=== PATIENT | female | born 1975 | race Caucasian/White ===

== ENCOUNTER 2021-08-24 07:41 | Emergency (ER) | payer MEDICAID, SELFPAY ==
[2021-08-24 07:42] VITALS: BP 147/77; PULSE 104; RESP 16; TEMP 37.1; O2SAT 100; BMI 36.6
--- NOTE | 2021-08-24 07:54 | EKG12_ITS ---
Test Reason : CP Blood Pressure : / mmHG Vent. Rate : 093 BPM Atrial Rate : 093 BPM P-R Int : 118 ms QRS Dur : 074 ms QT Int : 330 ms P-R-T Axes : 054 064 064 degrees QTc Int : 410 ms Normal sinus rhythm Normal ECG Confirmed by MISTY MAS, MARTI ([id number]), industrial editor ELIAZAR DIAZ ([id number]) on 08/27/2021 9:25:39 AM Referred By: Confirmed By:MARTI JAY MD
--- NOTE | 2021-08-24 08:03 | EX.ED.DYSGE1 ---
HPI History of Present Illness Chief Complaint: Chest Pain Detail of Chief Complaint: Patient initially reported chest pain. See HPI Informant: patient Onset/Context/Timing Onset: Hours (0400) Context: Sudden Onset Timing: Continuous Quality: Achy pain Location: Initially chest then upper abdomen radiating to back bilaterally then gener Current Severity: Mild Maximum Severity: Severe Worsened by: Bending over Relieved by: Nothing Associated Symptoms Associated Symptoms: Nausea loose stool Narrative Narrative: Patient is a middle-aged woman with history of type 2 diabetes with neuropathy, hypertension and hyperlipidemia who presents with chest discomfort that started at 0400 that radiates to the right and left upper quadrant and then to the back and then became generalized abdominal pain. She states when she bent over to use the restroom or pick and shovel man something the pain was worse. She had a loose stool. There was no blood or mucus. She has known cholelithiasis. She denies intolerance to greasy or fried foods. She had a bagel with cream cheese at 04 100, which she states she has every morning. She also reports abnormal vaginal bleeding. She states she is not sexually active. She is on no hormonal therapy. She has no symptoms of . She denies dysuria, frequency, urgency or hematuria. Presently she has no chest pain. She states the pain was worse when she bent over to use the restroom and when she went to fold close she had to pick and shovel man the been and put it at waist level because it hurts to bend over. She denies history of VTE. She denies leg pain, swelling discoloration. She has no risk factors for VTE. Prior similar symptoms: No Recent Illness/Hospitalization: No PFSH PFSH Medical History (Updated 08/24/21 @ 10:[address] Gregory Field MD) CPAP (continuous positive airway pressure) dependence Diabetes Diabetic neuropathy Gall stones Hyperlipidemia Hypertension Sleep apnea Smoker Varicose veins of both lower extremities Allergy/AdvReac Type Severity Reaction Status Date / Time No Known Allergies Allergy Verified 08/24/21 07:44 Surgical History (Updated 08/24/21 @ 08:16 by Delaney Ng) History of appendectomy Social History (Updated 08/24/21 @ 08:[address] Gregory Field MD) household members: children Smoking Status: Current every day smoker tobacco type: cigarettes and e-cigarettes substance use type: does not use ROS ROS ED Constitutional Constitutional ED: Denies chills, fever(s), subjective, sweats or weight loss Eyes Eyes: Denies blurry vision, change in vision or diplopia ENT ENT ED: Denies ear pain, rhinorrhea or sore throat Cardiovascular Cardiovascular: Reports chest pain; Denies orthopnea, palpitations, paroxysmal nocturnal dyspnea or racing heartbeat Respiratory/Chest Respiratory/Chest: Denies cough, dyspnea, dyspnea on exertion, orthopnea, paroxysmal nocturnal dyspnea or sputum Gastrointestinal Gastrointestinal: Reports abdominal pain and nausea; Denies constipation, diarrhea, melena or vomiting Genitourinary Genitourinary ED: Reports LMP (females 10-50) Details: Comment: (Bleeding for the past week, which is abnormal); Denies dysuria, hematuria or urinary frequency Musculoskeletal Musculoskeletal: Reports back pain; Denies arthralgias, myalgias or neck pain Integumentary Denies rash Neurologic Neurologic: Denies headache(s) or weakness Psychiatric Psychiatric: Denies anxiety or depression Endocrine Endocrinology: Denies polydipsia, polyphagia or polyuria Hematologic/Lymphatic Hematologic/Lymphatic: Denies anemia, easy bleeding or easy bruising EXAM Physical Exam Const Vital Signs: 08/24/21 07:42 08/24/21 08:16 08/24/21 08:17 Temperature 98.7 F Temperature Source Temporal Pulse Rate 104 H 94 Respiratory Rate 16 19 H Respiratory Effort Normal Non-Labored Blood Pressure 147/77 H 138/75 H Blood Pressure Mean 100 96 Pulse Ox 100 97 Oxygen Delivery Method Room Air Room Air Positive well nourished, well developed and obese General Appearance ED: well developed and NAD; Negative for cyanotic, diaphoretic or pallor Nutritional Appearance: obese HEENT Reports TM's clear and moist mucous membranes Negative for trauma or tenderness Tympanic Membrane ED: Yes TM's clear Eyes PERRL and EOMs intact bilaterally General Eye ED: Negative for pale conjunctiva or scleral icterus Neck no lymphadenopathy, supple and no JVD Resp normal respiratory effort and clear to auscultation bilaterally Cardio regular rate, regular rhythm, S1 normal heart sound, S2 normal heart sound and no murmurs GI normal to inspection, nondistended, normoactive bowel sounds, non-distended and no masses; Negative for non-tender Palpation: soft and tender Back/Spine no CVA tenderness Cervical Spine: Negative for cervical spine tenderness Thoracic Spine / Upper Back: Negative for thoracic spinal tenderness or paraspinal muscle tenderness Neuro oriented x3, CN's II-XII intact bilaterally and no sensory deficits noted Sensorium / Orientation: alert Motor Exam: strength 5/5 throughout Psych mental status grossly normal Skin no rashes or lesions noted and no wounds General Skin Exam: Negative for jaundice or pallor MDM MDM MDM Narrative Medical decision making narrative: Differential diagnosis would include biliary colic due to cholelithiasis versus cholecystitis, gastroenteritis uncertain why patient has abnormal vaginal bleeding since she reports not being sexually active for 4 years. She has not had a pelvic exam in some time. She is scheduled to have one on Tuesday. She denies history of PE or DVT. She denies leg pain, swelling discoloration. Doubt this is a pulmonary embolus. This is not consistent with cardiac either. EKG was ordered per nurse protocol. Patient was informed of results. She was given the name of the surgeon on-call. Lab Data Attestation: I reviewed the patient's lab results. Lab results narrative: White count is unremarkable. Comprehensive metabolic panel is remarkable glucose of 155 and calcium is slightly elevated 10.2. This is insignificant. Alkaline phosphatase is slightly evaded 149. Labs: Laboratory Results - last 24 hr 08/24/21 08/24/21 08:10 08:10 WBC 8.9 RBC 4.63 Hgb 14.6 Hct 43.0 MCV 92.9 MCH 31.5 MCHC 34.0 RDW Std Deviation 47.0 H RDW Coeff of Duane 13.9 Plt Count 372 MPV 10.4 Immature Gran % (Auto) 0.300 Neut % (Auto) 70.3 H Lymph % (Auto) 21.0 Craig % (Auto) 4.3 Eos % (Auto) 2.9 Baso % (Auto) 1.2 H Absolute Neuts (auto) 6.3 Absolute Lymphs (auto) 1.87 Nucleated RBC % 0 Sodium 138 Potassium 4.2 Chloride 105 Carbon Dioxide 26.0 Anion Gap 7 BUN 12 Creatinine 0.84 Estim Creat Clear Calc 66.19 Est GFR (MDRD) Af Amer 93 Est GFR (MDRD) Non-Af 77 BUN/Creatinine Ratio 14.3 Glucose 155 H Calcium 10.2 H Total Bilirubin 0.60 AST 25 ALT 38 Alkaline Phosphatase 149 H Total Protein 8.0 Albumin 3.8 Globulin 4.2 Albumin/Globulin Ratio 0.9 Lipase 144 Radiography Diagnostic Testing: Clinical Impression(s) from Imaging Studies Gallbladder Ultrasound 08/24/21 09:10 IMPRESSION: Cholelithiasis with large gallstones. Hepatic steatosis with hepatomegaly. at 1037 Reported and signed by: Jennifer Jacobo MD Electronically Signed: Jennifer Jacobo MD at 10:36 EDT , Patient symptoms are consistent with biliary colic due to cholelithiasis. EKG Initial EKG: Attestation: I personally reviewed and interpreted this EKG as follows: Interpretation: Sinus Rhythm (Normal sinus rhythm with a ventricular rate of 93. CA interval is under 118 ms. QRS duration is 74 ms. QT duration is 330 ms. Jachin is normal. The EKG is normal.) Discharge Plan Triage Chief Complaint: Chest Pain ED Provider: Field,Gregory Dx/Rx/DC Orders Clinical Impression: Cholelithiasis, Biliary colic Instructions: ED Gallstones with Biliary Colic Primary Care Provider: Gisselle Smith NP Referrals: Boaz Gibson MD [STAFF PHYSICIAN] - 1-2 Weeks Gisselle Smith NP, DESHAUN-C [Primary Care Provider] - Keep David appointment Disposition Disposition: Home, Self Care
[2021-08-24 08:16] VITALS: BP 138/75; PULSE 94; RESP 19; O2SAT 97
[2021-08-24 08:17] LABS: Absolute Lymphocyte Count 1.87 X10^3/uL (0.83-4.51); Absolute Neutrophil Count 6.3 X10^3/uL (2.0-7.7); Basophil# 0.11 X10^3/uL; Basophil% 1.2 % (0-1); Eosinophil# 0.26 X10^3/uL; Eosinophils% 2.9 % (0-5); Hemoglobin 14.6 g/dL (12.0-15.0); Lymphocyte # 1.87 X10^3/ul (0.83-4.51); Mean Corpuscular Hgb 31.5 pg (27.0-32.0); Mean Corpuscular Volume 92.9 fL (81-99); Mean Platelet Vol. 10.4 fl (6.2-12.0); Monocyte# 0.38 X10^3/uL; Monocyte% 4.3 % (0-10); NRBC Flagged by Analyzer 0 % (0-5); Neutrophil # 6.26 X10^3/uL (2.7-7.7); Neutrophil % 70.3 % (47-70); Platelet Count 372 K/mm3 (150-450); RBC Distribution Width CV 13.9 % (11.6-14.6); Red Blood Count 4.63 M/mm3 (4.2-5.4); White Blood Count 8.9 K/mm3 (4.4-11.0)
[2021-08-24 08:41] LABS: ALB/GLOB Ratio 0.9 RATIO (0.9-2.4); AST(SGOT) 25 U/L (15-37); Alanine Aminotransfer ALT/SGPT 38 U/L (13-56); Albumin, Serum 3.8 g/dL (3.2-5.0); Alkaline Phosphatase 149 U/L (45-117); Anion Gap 7 (5-15); BUN 12 mg/dL (7-18); BUN/Creat Ratio 14.3 RATIO (10-20); Calcium,Total 10.2 mg/dL (8.5-10.1); Chloride 105 mmol/L (98-107); Creatinine, Serum 0.84 mg/dL (0.55-1.02); EST Glomerular Filtration Rate 77 mL/min (>60); Est Glom Filt Rate - Afr Amer 93 mL/min (>60); Estimated Creatinine Clearance 66.19 ml/min; Globulin 4.2 g/dL (2.2-4.2); Glucose 155 mg/dL (74-106); Lipase 144 U/L (73-393); Potassium 4.2 mmol/L (3.5-5.1); Sodium Level 138 mmol/L (136-145)
--- NOTE | 2021-08-24 09:10 | US_ITS ---
HISTORY: PAIN. TECHNIQUE: Rothman scale and color Doppler imaging was performed of the right upper quadrant. Number of images including paperwork: 118. COMPARISON: None. FINDINGS: LIVER: 21.9 cm in length. Increased echogenicity with regions of sparing near the hilum and gallbladder fossa. No intrahepatic biliary ductal dilation. MAIN PORTAL VEIN: Patent with hepatopedal flow . CBD: 4 mm in diameter, nondilated. GALLBLADDER: 3 cm and 3.3 cm gallstones in the distended gallbladder. 2 mm wall thickness, within normal limits. No pericholecystic fluid. Negative sonographic Small sign reported. PANCREAS: Echogenic. RIGHT KIDNEY: 12.7 cm in length with a cortical thickness of 1.7 cm. No hydronephrosis or gross renal mass. US/Gallbladder IMPRESSION: Cholelithiasis with large gallstones. Hepatic steatosis with hepatomegaly. at 1037 Reported and signed by: Jennifer Jacobo MD Electronically Signed: Jennifer Jacobo MD at 10:36 EDT ,
[2021-08-24 11:09] VITALS: BP 134/75; PULSE 62; RESP 15; O2SAT 97
== END 2021-08-24 11:10 | disposition home or self-care (01) ==
PROVIDERS: Emergency Provider Emergency Medicine; PCP Nurse Practitioner Primary Care; Visit Provider Emergency Medicine
DX: K80.70 Calculus of gallbladder and bile duct without cholecystitis without obstruction (principal); E11.40 Type 2 diabetes mellitus with diabetic neuropathy, unspecified; F17.210 Nicotine dependence, cigarettes, uncomplicated; Z87.19 Personal history of other diseases of the digestive system; G47.30 Sleep apnea, unspecified; F17.290 Nicotine dependence, other tobacco product, uncomplicated; E66.9 Obesity, unspecified; Z68.36 Body mass index [BMI] 36.0-36.9, adult
CPT/HCPCS: 76705; 80053; 83690; 85025; 93005; 99284

== ENCOUNTER 2021-10-26 13:15 | Day surgery (SDC) | payer MEDICAID, SELFPAY ==
--- NOTE | 2021-10-26 | EGD_PTH ---
PATIENT: OSCAR BARRY LOC: EN U#:[id number] AGE/SX: 46/F ROOM: RE10/26/[address]: Dr. Boaz Gibson MD : 1975 BED: DIS: 10/26/2021 SPEC #: [id number] RECD: 10/26/21 16:42 STATUS: ALFONSO ROMERO #: [id number] KAYLA: 10/26/21 00:[address]: Boaz Gibson DEPT: SURGICAL PATHOLOGY RECD BY: Adeel Gil ENTERED: 10/27/21 09:25 SP TYPE: EGD BIOPSY OTHR DR: Gisselle Smith, CRYPTOLOGIC TECHNICIAN OPERATOR/ANALYST-C Tissues: A - Duodenum, NOS B - Gastric mucous membrane C - Gastric mucous membrane D - Sigmoid colon biopsy E - Rectum, NOS Procedures: Special Stain Group II Surgery Specimen Level IV Alcian Blue/PAS (control) HEADER OPERATION: Colonoscopy, polypectomy, EGD with biopsies PRE-OP DIAGNOSIS: GERD, constipation, melena TISSUE SUBMITTED: A ? Duodenal bulb biopsy, B ? Antrum for H. pylori and path, C ? GE junction biopsy, D ? Sigmoid polyp, E ? Rectal polyp MICROSCOPIC DIAGNOSIS A. Duodenal bulb, biopsy: Fragments of duodenal mucosa with focal mild congestion and hemorrhage. B. Antrum, biopsy: Mild gastritis. See microscopic description and comment. C. GE junction, biopsy: Fragments of gastroesophageal mucosa with chronic inflammation. Intestinal metaplasia (goblet cell metaplasia) not identified. See comment. D. Sigmoid polyp, biopsy: Fragments of hyperplastic polyp. E. Rectal polyp, biopsy: Hyperplastic polyp. SJ:rg 10/28/2021 COMMENT B. The results of immunohistochemistry for Helicobacter pylori will be reported separately ([id number]). C. Alcian blue/PAS stain with matched control is used in the evaluation of the specimen. MICROSCOPIC DESCRIPTION Slides are reviewed. B. The specimen shows fragments of gastric mucosa with chronic inflammatory cell infiltrates in the lamina propria consisting of lymphocytes and plasma cells, consistent with mild chronic gastritis. GROSS DESCRIPTION A - Received in fixative is one container labeled with the patient's name and designated duodenal bulb. The specimen consists of two irregular fragments of light hernandez soft tissue that in aggregate measure 0.3 x 0.3 x 0.1 cm. The specimen is totally submitted in one cassette. B - Received in fixative is one container labeled with the patient's name and designated antrum biopsy. The specimen consists of two irregular fragments of light hernandez soft tissue that in aggregate measure 0.3 x 0.3 x 0.1 cm. The specimen is totally submitted in one cassette. C - Received in fixative is one container labeled with the patient's name and designated GE junction. The specimen consists of two irregular fragments of light hernandez soft tissue that in aggregate measure 0.4 x 0.5 x 0.1 cm. The specimen is totally submitted in one cassette. D - Received in fixative is one container labeled with the patient's name and designated sigmoid polyp. The specimen consists of two irregular fragments of light hernandez soft tissue that in aggregate measure 0.3 x 0.3 x 0.1 cm. The specimen is totally submitted in one cassette. E - Received in fixative is one container labeled with the patient's name and designated rectal polyp. The specimen consists of one irregular fragment of light hernandez soft tissue that measures 0.3 x 0.3 x 0.1 cm. The specimen is totally submitted in one cassette. / SJ:rg 10/27/2021 TC:3 CPT: 85990 x5, 36036
[2021-10-26 14:01] VITALS: BP 112/62; PULSE 80; RESP 16; TEMP 36.1; O2SAT 95; BMI 38.7
[2021-10-26 14:01] LABS: Internal QC Validated? YES +Cl - CLEAR BKGD; Pregnancy, Urine Negative Negative
[2021-10-26] MEDS: Lactated Ringers 1,000 ML 15 ML IV (14:07)
--- NOTE | 2021-10-26 14:30 | IMM_PTH ---
PATIENT: OSCAR BARRY LOC: EN U#:[id number] AGE/SX: 46/F ROOM: RE10/26/[address]: Dr. Boaz Gibson MD : 1975 BED: DIS: 10/26/2021 SPEC #: [id number] RECD: 10/27/21 10:19 STATUS: ALFONSO RERafat #: [id number] KAYLA: 10/26/21 14:[address]: Boaz Gibson DEPT: IMMUNOHISTOCHEMISTRY RECD BY: Preeti Tellez ENTERED: 10/27/21 10:19 SP TYPE: IMMUNO OTHR DR: Gisselle Smith, SCRUM PRODUCT OWNER-C Tissues: B - Stomach, NOS Procedures: H Pylori (initial) PHYSICIAN & INSTITUTION [place] [address] SPECIMEN INFORMATION: Tissue Source: B ? Antrum Clinical Info: GERD, constipation, melena Specimen Number: [id number] CPT code: 60357 METHODOLOGY: Deparaffinized sections of prefer/formalin-fixed tissue or PAP/DQ stained slides are incubated with monoclonal/polyclonal antibodies/oligonucleotide probes. Localization is made via biotin free immunoperoxidase method. Appropriate controls are performed and reacted as expected. Results on target cell population are indicated in the following table: RESULTS: ANTIBODY / CLONE RESULT Block B H Pylori (polyclonal) negative These tests were developed and their performance characteristics determined by [facility]. They may not have been cleared or approved by the [place]. Food and Drug Administration. The FDA has determined that such clearance or approval is not necessary. The above immunohistochemical/dualISH markers are ordered and reviewed by the Pathologist. INTERPRETATION: B. Antrum, biopsy: Negative for Helicobacter pylori organisms. SJ:patsy 10/28/2021
[2021-10-26 14:31] LABS: Bedside Glucose 111 mg/dL (74-106)
--- NOTE | 2021-10-26 14:55 | HP.PCM_ITS ---
History and Physical Date of Admission: 10/26/21 Date of Service: 09/30/21 MR#:[id number]:[id number]: OSCAR BARRY [facility] #:[id number]:1975 Provider:Cammie Main/Sex: 46/F [facility] Int[facility] Vital Signs 09/30/21 07:58 Height 5 ft 2 in Weight: 215 lb BMI 39.3 BP 138/84 H Blood Pressure Location Rt brachial Position Sitting Respiration 17 Pulse 103 H Pulse Source Monitor Temp 97.8 F Temp Source Temporal Pulse Oximetry (%) 98 Oxygen Delivery Method room air Intake Visit Reasons: GALLBLADDER Chief Complaint: Gallbaldder Band Teacher Required: No Is patient in pain?: No Allergies No Known Allergies Allergy (Verified 09/30/21 07:59) Medications atorvastatin 10 mg tablet 10 mg PO DAILY 09/30/21 [History Confirmed 09/30/21] cholecalciferol (vitamin D3) 50 mcg (2,000 unit) capsule 50 mcg PO DAILY 09/30/21 [History Confirmed 09/30/21] diphenhydramine HCl 25 mg tablet 25 mg PO QHS PRN 09/30/21 [History Confirmed 09/30/21] fluticasone propionate 50 mcg/actuation nasal spray,suspension 1 spray INTRANASAL DAILY 09/30/21 [History Confirmed 09/30/21] lisinopril 10 mg tablet 10 mg PO DAILY 09/30/21 [History Confirmed 09/30/21] loratadine 10 mg tablet 10 mg PO DAILY 09/30/21 [History Confirmed 09/30/21] melatonin 5 mg capsule 5 mg PO QHS PRN cap 09/30/21 [History Confirmed 09/30/21] metformin 1,000 mg tablet 1,000 mg PO BID 09/30/21 [History Confirmed 09/30/21] montelukast 10 mg tablet 10 mg PO DAILY 09/30/21 [History Confirmed 09/30/21] omeprazole 20 mg capsule,delayed release 20 mg PO DAILY #30 cap 09/30/21 [Rx Confirmed 09/30/21] pregabalin 50 mg capsule 50 mg PO BID 09/30/21 [History Confirmed 09/30/21] vitamin B complex 1 tab PO DAILY 09/30/21 [History Confirmed 09/30/21] [facility] Medical History CPAP (continuous positive airway pressure) dependence Diabetes Diabetic neuropathy Gall stones Hyperlipidemia Hypertension Sleep apnea Smoker Varicose veins of both lower extremities Surgical History History of appendectomy Family History (Updated 09/30/21 @ 07:57 by Carissa Tuesday) Father Colon cancer High cholesterol Mother Diabetes Thyroid disorder Social History (Updated 09/30/21 @ 07:58 by Carissa Tuesday) household members: children Smoking Status: Current every day smoker tobacco type: cigarettes and e- cigarettes alcohol intake: never substance use type: does not use HPI HPI HPI: OSCAR BARRY, is a 46 F who presents to the office today for who presents with gallstones. They are referred for surgical consultation from emergency medicine following an ER visit on 08/24/2021. Patient states that she has done well following this visit after she made some dietary modifications. However, she states that she has had right upper quadrant symptoms for the last 5 years or so. Previous to her episode in August she estimates it was 3 to 4 years ago that she had a bout of discomfort. Patient states that she had a [employer] triple cheeseburger just prior to the onset of her pain in August. This pain was associated with an episode of vomiting, some diarrhea, and some cold sweats. She states that she presented to the ER to rule out possible heart attack. However, she admits she was aware of gallstones since a ultrasound performed to the [facility] the preceding month. She is uncertain why that ultrasound was ordered. Patient states that her diet now looks to minimize any grease. She gives examples of eating only the pizza crust pizza and meat list tacos. Patient has a number of other positive findings with her review of systems and among these details a history of heartburn. She declared this to be not extremely problematic and just became my norm. She states that she previously took omeprazole for this issue while she was still , but has been several years since she was on any medications for this. Symptoms occur several times a week. She also admits to being a every day smoker and estimates she smoked 10 cigarettes daily for the last 20 years. Patient has a history of constipation as well. She states that she had a dark stool within the last month, but denies regularly noting any blood. She also confirms a family history of colon cancer. This was diagnosed in her father within the last 10 years and he is currently 75 years old. Previous work-up has included: Right upper quadrant ultrasound that demonstrated 3 cm gallstones, gallbladder wall of 2 mm, no pericholecystic fluid and a common bile duct diameter of 4 mm. ROS General General: Yes weight change; No appetite, fatigue, colon cancer, breast cancer or weakness HEENT HEENT: No difficulty swallowing, eye injury, eye surgery, swollen glands or hoarseness Endo Endocrine: Yes diabetes mellitus; No thyroid disease, thyroid cancer, Hair loss, heat intolerance or cold intolerance Skin Skin: No rash or changing moles Musc Musculoskeletal: No back problems, arthritis, rheumatoid arthritis, gout or joint pain Cardio Cardiovascular: Yes high blood pressure; No murmur, pacemaker, heart disease, atrial fibrillation, heart attack, heart stent, palpitations, shortness of breat with exertion or chest pain Psych Psychiatric: No depression, anxiety or hearing voices Resp Respiratory: No shortness of breath, Yes sleep apnea, No cough, No COPD, No asthma, No emphysema and No wheezing Gastro Gastrointestinal: No abdominal pain, No nausea or vomiting, No diarrhea, No constipation, No blood in stool, No acid reflux, No hemorrhoids, No ulcers, Yes gallbladder problem and No black,tarry stools Fam Hematologic: No blood thinners, No blood disorders, No bleeding, No anemia and No blood clots Neuro Neurologic: No system reviewed and no additional complaints, except as documented, No as per HPI, No abnormal gait, No abnormal hearing, No abnormal movements, No abnormal speech, No behavioral changes, No burning sensations, No confusion, No convulsions, No disequilibrium, No dizziness, No localized weakness, No frequent falls, No headache(s), No lack of coordination, No loss of vision, No memory loss, No numbness, No other visual disturbances, No radicular pain, No restless legs, No sensory deficit, No syncope, Yes tingling, No tremor(s), No weakness and No other Exam Const General: cooperative, healthy appearing, comfortable and no acute distress Nutritional Appearance: obese Orientation: alert, awake and oriented x3 Resp Effort & Inspection: normal respiratory effort Auscultation: no rales, no rhonchi and no wheezes Cardio Rate: regular rate Rhythm: regular rhythm Heart Sounds: S1 normal and S2 normal GI Inspection: obesity and scar Palpation: soft and tender in the RUQ (Minimally tender in the right upper quadrant) Assessment and Plan Assessment and Plan (1) GERD (gastroesophageal reflux disease): Status: Acute Comment: This is a 46-year-old female with a history of chronic reflux. She has never routinely taken PPI medications for this issue, but admits to using some of her 's while she was still and had a favorable response. She has also a every day smoker. Taken together, she has significant risk factors for development of Pierre's esophagus and therefore I have recommended a diagnostic EGD with possible biopsy. Plan - Dr. Boaz Gibson MD: EGD under local MAC with possible biopsy (2) Smoking 1/2 pack a day or less: Status: Acute (3) Cholelithiasis: Status: Acute Comment: Patient with recurrent right upper quadrant pain that is associated with nausea, vomiting, and cold sweats. At the time of this presentation a month ago a right upper quadrant ultrasound was ordered and patient was found to have evidence of very large gallstones. She has been largely successful and sticking to a restricted diet and as a result has not had further right upper quadrant discomfort. However, she is eager to have her gallbladder surgically addressed to avoid future symptoms. On exam, she has very minimal tenderness in the right upper quadrant. I recommend elective laparoscopic cholecystectomy with possible intraoperative cholangiogram. Plan - Dr. Boaz Gibson MD: Laparoscopic cholecystectomy possible intraoperative cholangiogram?patient to clear she wishes to wait until November 2021 to undergo the surgery so that her daughter can be out of school at the time of surgery. I have cautioned her that this may expose her to more risk of recurrent symptoms. Patient is fairly adamant at this point that she would like to delay surgery until that time. (4) Family history of colon cancer in father: Status: Acute Comment: This is a 46-year-old female with a history of constipation and intermittent melena who admits to a family history of colon cancer. Given her age, bowel symptoms, family history, and plans for diagnostic EGD I have recommended diagnostic colonoscopy under local MAC as well. Patient states she understands the rationale for this recommendation and wishes to proceed as described. She would like to do simultaneous EGD and colonoscopy under local MAC sometime in the next month. Plan - Dr. Boaz Gibson MD: Colonoscopy under local MAC with biopsies as necessary given personal history, family history, and current age. Reviewed with patient that a courier delivery driver would be needed the day of the procedure given the use of sedation. Also reviewed that any pathology obtained would be necessarily delayed by approximately 48 business hours for processing (5) Constipation: Status: Acute (6) Melena: Status: Acute Plan Details I have re-examined the patient. There are no clinical changes since date of exam. Patient confirms that she completed her bowel prep successfully and her output is now clear. We reviewed the expectations for the procedure as well as the risk for some minor bleeding thereafter if biopsies are taken. Patient denies any further questions. Plan to proceed with upper and lower endoscopy under local MAC as described above.
[2021-10-26 16:32] VITALS: BP 112/62; BP 124/74; PULSE 92; RESP 16; TEMP 36.5; O2SAT 98
[2021-10-26 16:35] VITALS: BP 112/62; BP 123/72; PULSE 87; RESP 16; O2SAT 100
[2021-10-26 16:40] VITALS: BP 112/62; BP 123/76; PULSE 82; RESP 16; O2SAT 100
--- NOTE | 2021-10-26 16:43 | OP.EGD_ITS ---
Patient Name: Brandy Short Procedure Date: 10/26/2021 2:51 PM Date of : 1975 Age: 46 Procedure: Upper GI endoscopy Indications: Heartburn Providers: Boaz Gibson MD Medicines: See the Anesthesia note for documentation of the administered medications Patient Profile: Refer to note in patient chart for documentation of history and physical. Complications: No immediate complications. Estimated blood loss: Minimal. Procedure: Pre-Anesthesia Assessment: - The heart rate, respiratory rate, oxygen saturations, blood pressure, adequacy of pulmonary ventilation, and response to care were monitored throughout the procedure. After obtaining informed consent, the endoscope was passed under direct vision. Throughout the procedure, the patient's blood pressure, pulse, and oxygen saturations were monitored continuously. The colonoscope was introduced through the mouth, and advanced to the second part of duodenum. The upper GI endoscopy was somewhat difficult due to excessive bleeding and the patient's oxygen desaturation. Successful completion of the procedure was aided by controlling the bleeding and performing chin lift. The patient tolerated the procedure fairly well. Scope In: 3:10:30 PM Scope Out: 3:39:53 PM Total Procedure Duration Time 0 hours 29 minutes 23 seconds Findings: Many 3 mm mucosal nodules with a localized distribution were found in the duodenal bulb. Biopsies were taken with a cold forceps for histology. Estimated blood loss was minimal. Diffuse mild inflammation characterized by erythema was found in the entire examined stomach. Biopsies were taken with a cold forceps for histology. Estimated blood loss was minimal. Biopsies were taken with a cold forceps for Helicobacter pylori cultures. Estimated blood loss was minimal. A medium-sized hiatal hernia was present. The Z-line was variable and was found 38 cm from the incisors. Biopsies were taken with a cold forceps for histology. Estimated blood loss: 5 mL requiring treatment with coagulation. Impression: - Mucosal nodule found in the duodenum. Biopsied. - Gastritis. Biopsied. - Medium-sized hiatal hernia. - Z-line variable, 38 cm from the incisors. Biopsied. Recommendation: - Discharge patient to home (via wheelchair). - Resume previous diet today. - Use Prilosec (omeprazole) 40 mg PO daily today. - Await pathology results. - Telephone my office for pathology results in 1 week. - Continue present medications. Procedure Code(s): --- Professional --- 95437, Esophagogastroduodenoscopy, flexible, transoral; with biopsy, single or multiple Diagnosis Code(s): --- Professional --- K31.89, Other diseases of stomach and duodenum K29.70, Gastritis, unspecified, without bleeding K44.9, Diaphragmatic hernia without obstruction or gangrene K22.8, Other specified diseases of esophagus R12, Heartburn CPT copyright 2017 [employer]. All rights reserved. The codes documented in this report are preliminary and upon plastic straightening roll operator review may be revised to meet current compliance requirements. Baoz Gibson MD 10/26/2021 4:43:10 PM This report has been signed electronically. Number of Addenda: 0 Note Initiated On: 10/26/2021 2:51 PM
--- NOTE | 2021-10-26 16:43 | OP.CCLET_ITS ---
10/26/2021 Gisselle Podlogar Re : Upper GI endoscopy procedure for Brandy Short Dear Podlogar This procedure was performed on Tuesday, October 26, 2021. My impressions and recommendations are as follows: Impressions : - Mucosal nodule found in the duodenum. Biopsied. - Gastritis. Biopsied. - Medium-sized hiatal hernia. - Z-line variable, 38 cm from the incisors. Biopsied. Recommendations : - Discharge patient to home (via wheelchair). - Resume previous diet today. - Use Prilosec (omeprazole) 40 mg PO daily today. - Await pathology results. - Telephone my office for pathology results in 1 week. - Continue present medications. My findings are described in the full procedure note, which is enclosed. If I can be of further assistance, please feel free to contact me at Doctor phone number(s): , Work: . Sincerely, Boaz Gibson MD 10/26/2021 4:43:10 PM This report has been signed electronically.
--- NOTE | 2021-10-26 16:50 | OP.CCLET_ITS ---
10/26/2021 Gisselle Podlogar Re : Colonoscopy procedure for Brandy Short Dear Podlogar This procedure was performed on Tuesday, October 26, 2021. My impressions and recommendations are as follows: Impressions : - Polypoid lesion in the proximal rectum and in the distal sigmoid colon. Biopsied. - The examination was otherwise normal on direct and retroflexion views. Recommendations : - Discharge patient to home (via wheelchair). - High fiber diet today. - Continue present medications. - Await pathology results. - Repeat colonoscopy date to be determined after pending pathology results are reviewed for surveillance based on pathology results. - Telephone my office for pathology results in 1 week. My findings are described in the full procedure note, which is enclosed. If I can be of further assistance, please feel free to contact me at Doctor phone number(s): , Work: . Sincerely, Boaz Gibson MD 10/26/2021 4:50:08 PM This report has been signed electronically.
--- NOTE | 2021-10-26 16:50 | OP.COLON_ITS ---
Patient Name: Brandy Short Procedure Date: 10/26/2021 3:40 PM Date of : 1975 Age: 46 Procedure: Colonoscopy Indications: Melena, Family history of colon cancer in a first-degree relative, Constipation Providers: Boaz Gibson MD Medicines: See the Anesthesia note for documentation of the administered medications Patient Profile: Refer to note in patient chart for documentation of history and physical. Last Colonoscopy: none. The patient's first colonoscopy is today. Complications: No immediate complications. Estimated blood loss: Minimal. Procedure: Pre-Anesthesia Assessment: - The heart rate, respiratory rate, oxygen saturations, blood pressure, adequacy of pulmonary ventilation, and response to care were monitored throughout the procedure. - The heart rate, respiratory rate, oxygen saturations, blood pressure, adequacy of pulmonary ventilation, and response to care were monitored throughout the procedure. After I obtained informed consent, the scope was passed under direct vision. Throughout the procedure, the patient's blood pressure, pulse, and oxygen saturations were monitored continuously. The colonoscope was introduced through the anus and advanced to the cecum, identified by appendiceal orifice and ileocecal valve. The colonoscopy was technically difficult and complex due to a redundant colon and a tortuous colon. Successful completion of the procedure was aided by changing the patient to a supine position and using manual pressure. The patient tolerated the procedure fairly well. The quality of the bowel preparation was adequate to identify polyps. Scope In: 3:43:02 PM Scope Withdrawal Time 0 hours 18 minutes 17 seconds Scope Out: 4:26:24 PM Total Procedure Duration Time 0 hours 43 minutes 22 seconds Findings: A 3 mm polypoid lesion was found in the proximal rectum and in the distal sigmoid colon. The lesion was semi-sessile. No bleeding was present. Biopsies were taken with a cold forceps for histology. Estimated blood loss was minimal. The exam was otherwise without abnormality on direct and retroflexion views. Impression: - Polypoid lesion in the proximal rectum and in the distal sigmoid colon. Biopsied. - The examination was otherwise normal on direct and retroflexion views. Recommendation: - Discharge patient to home (via wheelchair). - High fiber diet today. - Continue present medications. - Await pathology results. - Repeat colonoscopy date to be determined after pending pathology results are reviewed for surveillance based on pathology results. - Telephone my office for pathology results in 1 week. Procedure Code(s): --- Professional --- 70470, Colonoscopy, flexible; with biopsy, single or multiple Diagnosis Code(s): --- Professional --- D49.0, Neoplasm of unspecified behavior of digestive system K92.1, Melena (includes Hematochezia) Z80.0, Family history of malignant neoplasm of digestive organs K59.00, Constipation, unspecified CPT copyright 2017 [employer]. All rights reserved. The codes documented in this report are preliminary and upon principal consulting engineer review may be revised to meet current compliance requirements. Boaz Gibson MD 10/26/2021 4:50:08 PM This report has been signed electronically. Number of Addenda: 0 Note Initiated On: 10/26/2021 3:40 PM
[2021-10-26 16:51] VITALS: BP 112/62; BP 127/83; PULSE 83; RESP 16; TEMP 36.1; O2SAT 100
[2021-10-26 17:35] VITALS: BP 112/62
== END 2021-10-26 17:43 | disposition home or self-care (01) ==
LOC: EN 13:15 → AC 13:20
PROVIDERS: Anesthesiology; PCP Nurse Practitioner Primary Care; Referring Provider Surgery; Visit Provider Surgery
PROC: 0DJD8ZZ Inspection of Lower Intestinal Tract, Via Natural or Artificial Opening Endoscopic (ICD-10-PCS; CPT 45378; principal; 2021-10-26 14:25)
DX: K29.70 Gastritis, unspecified, without bleeding (principal); E11.40 Type 2 diabetes mellitus with diabetic neuropathy, unspecified; K44.9 Diaphragmatic hernia without obstruction or gangrene; R19.7 Diarrhea, unspecified; I10 Essential (primary) hypertension; Z79.84 Long term (current) use of oral hypoglycemic drugs; K21.9 Gastro-esophageal reflux disease without esophagitis; K80.20 Calculus of gallbladder without cholecystitis without obstruction; E78.5 Hyperlipidemia, unspecified; Z80.0 Family history of malignant neoplasm of digestive organs; K31.89 Other diseases of stomach and duodenum; R12 Heartburn; K59.00 Constipation, unspecified; K92.1 Melena; D49.0 Neoplasm of unspecified behavior of digestive system; G47.30 Sleep apnea, unspecified; Z99.89 Dependence on other enabling machines and devices
CPT/HCPCS: 45380; 43239; 81025; 82962; 88305; 88313; 88342; J7120; J2405

== ENCOUNTER 2021-11-27 08:50 | Day surgery (SDC) | payer MEDICAID, SELFPAY ==
[2021-11-27] VITALS (7 sets, daily range): BP systolic 98–139; BP diastolic 54–69; PULSE 72–91; RESP 15–16; TEMP 36.6–37.2; O2SAT 18–100; BMI 39.1
--- NOTE | 2021-11-27 09:04 | EKG12_ITS ---
Test Reason : PRE OP Blood Pressure : / mmHG Vent. Rate : 089 BPM Atrial Rate : 089 BPM P-R Int : 136 ms QRS Dur : 068 ms QT Int : 338 ms P-R-T Axes : 048 051 046 degrees QTc Int : 411 ms Normal sinus rhythm Normal ECG Confirmed by CHAUNCEY MAS, VINNIE ([id number]), digital editor ELIAZAR DIAZ ([id number]) on 12/01/2021 8:37:46 AM Referred By: FREDI Confirmed By:VINNIE GROSSMAN MD
[2021-11-27] MEDS: INDOCYANINE GREEN 25 MG VIAL INSTILLAT (09:10)
[2021-11-27 09:23] LABS: Internal QC Validated? YES +Cl - CLEAR BKGD; Pregnancy, Urine Negative Negative
[2021-11-27] MEDS: Lactated Ringers 1,000 ML 30 ML IV (09:54)
[2021-11-27 09:57] LABS: Hematocrit 36.6 % (37-47); Mean Corp Hgb Conc 32.8 g/dL (32-36); Mean Corpuscular Hgb 29.7 pg (27.0-32.0); Mean Corpuscular Volume 90.6 fL (81-99); Mean Platelet Vol. 10.8 fl (6.2-12.0); Platelet Count 366 K/mm3 (150-450); RBC Distribution Width CV 13.6 % (11.6-14.6); Red Blood Count 4.04 M/mm3 (4.2-5.4); White Blood Count 9.1 K/mm3 (4.4-11.0)
[2021-11-27 10:05] LABS: Bedside Glucose 124 mg/dL (74-106)
[2021-11-27 10:05] LABS: Anion Gap 7 (5-15); BUN 12 mg/dL (7-18); BUN/Creat Ratio 18.1 RATIO (10-20); Calcium,Total 8.9 mg/dL (8.5-10.1); Chloride 106 mmol/L (98-107); Creatinine, Serum 0.66 mg/dL (0.55-1.02); EST Glomerular Filtration Rate 102 mL/min (>60); Est Glom Filt Rate - Afr Amer 123 mL/min (>60); Estimated Creatinine Clearance 84.24 ml/min; Glucose 112 mg/dL (74-106); Potassium 4.1 mmol/L (3.5-5.1); Sodium Level 136 mmol/L (136-145)
--- NOTE | 2021-11-27 10:30 | GALL_PTH ---
PATIENT: OSCAR BARRY [place] [facility] [id number] AGE/SX: 46/F ROOM: RE11/27/[address]: Dr. Boaz Gibson MD : 1975 BED: DIS: 11/27/2021 SPEC #: [id number] RECD: 11/27/21 16:40 STATUS: ALFONSO ROMERO #: [id number] KAYLA: 11/27/21 10:[address]: Boaz Gibson DEPT: SURGICAL PATHOLOGY RECD BY: Donald Chowdhury ENTERED: 11/30/21 06:43 SP TYPE: AMBERLY RIVERA DR: Gisselle Smith, LAW FIRM ADMINISTRATOR-C Tissues: Gallbladder, NOS Procedures: Surgery Specimen Level III HEADER OPERATION: Robotic laparoscopic cholecystectomy with IOC PRE-OP DIAGNOSIS: Cholelithiasis, GERD TISSUE SUBMITTED: Gallbladder MICROSCOPIC DIAGNOSIS Gallbladder, cholecystectomy: Chronic cholecystitis and cholelithiasis. SJ:patsy 12/01/2021 MICROSCOPIC DESCRIPTION Slides are reviewed. GROSS DESCRIPTION Received is one container labeled with the patient's name and designated gallbladder. The specimen consists of a gallbladder measuring 10 cm in length and 3 cm in diameter. The gallbladder is previously opened at the proximal margin. The cystic duct could not be properly oriented. The external surface is pink-hernandez, smooth and glistening for the most part. Focally it is granular, hemorrhagic and contains cautery artifact. The gallbladder contains small amount of green-yellow mucoid bile and two ovoid, greenish-brown stones measuring 2.5 and 3 cm in greatest dimension. The mucosa is bile-stained and without any mass lesions. The gallbladder wall measures up to 0.3 cm in thickness. Brim Welt Sewing Machine Operator sections from the gallbladder are submitted in one cassette. / SJ:rg 11/30/2021 :5 [facility]: [id number]
[2021-11-27 11:07] LABS: Hemoglobin A1c 6.9 % (3.8-5.6)
[2021-11-27] MEDS: Cefazolin 2 GM in 0.9% Normal Saline 100 ML IV (11:19)
--- NOTE | 2021-11-27 11:26 | PCM.HP.BLA ---
History and Physical Date of Admission: 11/27/21 History & Physical Exam 10/26/21 1455 MR#:? [id number] Acct: [id number] Name: OSCAR BARRY Rep #: [id number] :? 1975 46 From:? Boaz Gibson MD PCP: TAYLOR Mtz ? Status: [facility] Location: [place] [address] History and Physical Date of Admission: 10/26/21 Date of Service:? 09/30/21 MR#:[id number]:[id number]: OSCAR BARRY LRep #:[id number]:1975? Provider:Cammie Main/Sex: 46/F? [facility] Vital Signs ? 09/30/21 07:58 Height 5 ft 2 in Weight: 215 lb BMI 39.3 BP 138/84 H Blood Pressure Location Rt brachial Position Sitting Respiration 17 Pulse 103 H Pulse Source Monitor Temp 97.8 F Temp Source Temporal Pulse Oximetry (%) 98 Oxygen Delivery Method room air Intake Visit Reasons: GALLBLADDER Chief Complaint: Gallbaldder Neurology Teacher Required: No Is patient in pain?: No Allergies No Known Allergies Allergy (Verified 09/30/21 07:59) Medications atorvastatin 10 mg tablet 10 mg PO DAILY 09/30/21 [History Confirmed 09/30/21] cholecalciferol (vitamin D3) 50 mcg (2,000 unit) capsule 50 mcg PO DAILY 09/30/21 [History Confirmed 09/30/21] diphenhydramine HCl 25 mg tablet 25 mg PO QHS PRN 09/30/21 [History Confirmed 09/30/21] fluticasone propionate 50 mcg/actuation nasal spray,suspension 1 spray INTRANASAL DAILY 09/30/21 [History Confirmed 09/30/21] lisinopril 10 mg tablet 10 mg PO DAILY 09/30/21 [History Confirmed 09/30/21] loratadine 10 mg tablet 10 mg PO DAILY 09/30/21 [History Confirmed 09/30/21] melatonin 5 mg capsule 5 mg PO QHS PRN? cap 09/30/21 [History Confirmed 09/30/21] metformin 1,000 mg tablet 1,000 mg PO BID 09/30/21 [History Confirmed 09/30/21] montelukast 10 mg tablet 10 mg PO DAILY 09/30/21 [History Confirmed 09/30/21] omeprazole 20 mg capsule,delayed release 20 mg PO DAILY #30 cap 09/30/21 [Rx Confirmed 09/30/21] pregabalin 50 mg capsule 50 mg PO BID 09/30/21 [History Confirmed 09/30/21] vitamin B complex 1 tab PO DAILY 09/30/21 [History Confirmed 09/30/21] PFSH Medical History CPAP (continuous positive airway pressure) dependence Diabetes Diabetic neuropathy Gall stones Hyperlipidemia Hypertension Sleep apnea Smoker Varicose veins of both lower extremities Surgical History History of appendectomy Family History (Updated 09/30/21 @ 07:57 by Carissa Tuesday) Father Colon cancer High cholesterol Mother Diabetes Thyroid disorder Social History (Updated 09/30/21 @ 07:58 by Carissa Tuesday) household members:? children Smoking Status:? Current every day smoker tobacco type: cigarettes and e-cigarettes alcohol intake:? never substance use type:? does not use HPI HPI HPI: OSCAR BARRY, is a 46 F who presents to the office today for who presents with gallstones.? They are referred for surgical consultation from emergency medicine following an ER visit on 08/24/2021.? Patient states that she has done well following this visit after she made some dietary modifications.? However, she states that she has had right upper quadrant symptoms for the last 5 years or so.? Previous to her episode in August she estimates it was 3 to 4 years ago that she had a bout of discomfort. ? Patient states that she had a [employer] triple cheeseburger just prior to the onset of her pain in August.? This pain was associated with an episode of vomiting, some diarrhea, and some cold sweats.? She states that she presented to the ER to rule out possible heart attack.? However, she admits she was aware of gallstones since a ultrasound performed to the [facility] the preceding month.? She is uncertain why that ultrasound was ordered.? Patient states that her diet now looks to minimize any grease.? She gives examples of eating only the pizza crust pizza and meat list tacos. Patient has a number of other positive findings with her review of systems and among these details a history of heartburn.? She declared this to be not extremely problematic and just became my norm.? She states that she previously took omeprazole for this issue while she was still , but has been several years since she was on any medications for this.? Symptoms occur several times a week.? She also admits to being a every day smoker and estimates she smoked 10 cigarettes daily for the last 20 years. Patient has a history of constipation as well.? She states that she had a dark stool within the last month, but denies regularly noting any blood.? She also confirms a family history of colon cancer.? This was diagnosed in her father within the last 10 years and he is currently 75 years old. Previous work-up has included: Right upper quadrant ultrasound that demonstrated 3 cm gallstones, gallbladder wall of 2 mm, no pericholecystic fluid and a common bile duct diameter of 4 mm. ROS General General: Yes weight change; No appetite, fatigue, colon cancer, breast cancer or weakness HEENT HEENT: No difficulty swallowing, eye injury, eye surgery, swollen glands or hoarseness Endo Endocrine: Yes diabetes mellitus; No thyroid disease, thyroid cancer, Hair loss, heat intolerance or cold intolerance Skin Skin: No rash or changing moles Musc Musculoskeletal: No back problems, arthritis, rheumatoid arthritis, gout or joint pain Cardio Cardiovascular: Yes high blood pressure; No murmur, pacemaker, heart disease, atrial fibrillation, heart attack, heart stent, palpitations, shortness of breat with exertion or chest pain Psych Psychiatric: No depression, anxiety or hearing voices Resp Respiratory: No shortness of breath, Yes sleep apnea, No cough, No COPD, No asthma, No emphysema and No wheezing Gastro Gastrointestinal: No abdominal pain, No nausea or vomiting, No diarrhea, No constipation, No blood in stool, No acid reflux, No hemorrhoids, No ulcers, Yes gallbladder problem and No black,tarry stools Fam Hematologic: No blood thinners, No blood disorders, No bleeding, No anemia and No blood clots Neuro Neurologic: No system reviewed and no additional complaints, except as documented, No as per HPI, No abnormal gait, No abnormal hearing, No abnormal movements, No abnormal speech, No behavioral changes, No burning sensations, No confusion, No convulsions, No disequilibrium, No dizziness, No localized weakness, No frequent falls, No headache(s), No lack of coordination, No loss of vision, No memory loss, No numbness, No other visual disturbances, No radicular pain, No restless legs, No sensory deficit, No syncope, Yes tingling, No tremor(s), No weakness and No other Exam Const General: cooperative, healthy appearing, comfortable and no acute distress Nutritional Appearance: obese Orientation: alert, awake and oriented x3 Resp Effort & Inspection: normal respiratory effort Auscultation: no rales, no rhonchi and no wheezes Cardio Rate: regular rate Rhythm: regular rhythm Heart Sounds: S1 normal and S2 normal GI Inspection: obesity and scar Palpation: soft and tender in the RUQ (Minimally tender in the right upper quadrant) Assessment and Plan Assessment and Plan (1) GERD (gastroesophageal reflux disease): ? ? ? Status: Acute ? ? ? Comment: This is a 46-year-old female with a history of chronic reflux.? She has never routinely taken PPI medications for this issue, but admits to using some of her 's while she was still and had a favorable response.? She has also a every day smoker.? Taken together, she has significant risk factors for development of Pierre's esophagus and therefore I have recommended a diagnostic EGD with possible biopsy. ? ? ? Plan - Dr. Boaz Gibson MD: EGD under local MAC with possible biopsy (2) Smoking 1/2 pack a day or less: ? ? ? Status: Acute (3) Cholelithiasis: ? ? ? Status: Acute ? ? ? Comment: Patient with recurrent right upper quadrant pain that is associated with nausea, vomiting, and cold sweats.? At the time of this presentation a month ago a right upper quadrant ultrasound was ordered and patient was found to have evidence of very large gallstones.? She has been largely successful and sticking to a restricted diet and as a result has not had further right upper quadrant discomfort.? However, she is eager to have her gallbladder surgically addressed to avoid future symptoms.? On exam, she has very minimal tenderness in the right upper quadrant.? I recommend elective laparoscopic cholecystectomy with possible intraoperative cholangiogram. ? ? ? Plan - Dr. Boaz Gibson MD: Laparoscopic cholecystectomy possible intraoperative cholangiogram?patient to clear she wishes to wait until November 2021 to undergo the surgery so that her daughter can be out of school at the time of surgery.? I have cautioned her that this may expose her to more risk of recurrent symptoms.? Patient is fairly adamant at this point that she would like to delay surgery until that time. (4) Family history of colon cancer in father: ? ? ? Status: Acute ? ? ? Comment: This is a 46-year-old female with a history of constipation and intermittent melena who admits to a family history of colon cancer.? Given her age, bowel symptoms, family history, and plans for diagnostic EGD I have recommended diagnostic colonoscopy under local MAC as well.? Patient states she understands the rationale for this recommendation and wishes to proceed as described.? She would like to do simultaneous EGD and colonoscopy under local MAC sometime in the next month. ? ? ? Plan - Dr. Boaz Gibson MD: Colonoscopy under local MAC with biopsies as necessary given personal history, family history, and current age.? Reviewed with patient that a milk pickup truck driver would be needed the day of the procedure given the use of sedation.? Also reviewed that any pathology obtained would be necessarily delayed by approximately 48 business hours for processing (5) Constipation: ? ? ? Status: Acute (6) Melena: ? ? ? Status: Acute Plan Details I have re-examined the patient. There are no clinical changes since date of exam. We discussed postoperative expectations and patient is ready to proceed for our scheduled robotic cholecystectomy with intraoperative cholangiogram.
--- NOTE | 2021-11-27 11:40 | RAD_ITS ---
STUDY: INTRAOPERATIVE CHOLANGIOGRAM. REASON FOR EXAM: Female, 46 years old. PAIN FLUOROSCOPY TIME (if supplied): ( 27.9 seconds ) minutes/seconds. A cine loop of 169 images was submitted. TECHNIQUE: Intraoperative cholangiogram was performed by the surgeon. Imaging was provided. COMPARISON: None. FINDINGS: The common bile duct is not dilated. No intraluminal filling defect is seen. There is free flow of contrast into the duodenum. RAD/Cholangiogram/ O R,Initial IMPRESSION: Unremarkable intraoperative Cholangiogram. Electronically Signed: Eligio Roger MD at 12:42 EDT ,
[2021-11-27] MEDS: Bupivacaine Mpf 0.5% 30 ML VIAL (11:50)
--- NOTE | 2021-11-27 13:30 | PCM.OPRPT ---
Problems Associated Problem List Diagnoses (1) Chronic cholecystitis: Report of Operation Date of Procedure: 11/27/21 Pre-Operative Diagnosis: Symptomatic cholelithiasis Post-Operative Diagnosis: Chronic cholecystitis Surgery/Procedure Performed:: Robotic assisted cholecystectomy with intraoperative cholangiogram Description of Surgical Findings:: ? Normal gallbladder anatomy ? Free flow of contrast through the cystic duct into the common bile duct and into the duodenum without evidence of filling defect Surgeon: Boaz Gibson pipe smoker machine operator: Corina Boss Type of Anesthesia: General/Supplemental Anesthesiologist: Henry Flowers Specimen's removed: gallbladder Drains: none Estimated Blood Loss (mL): 25 Description of Procedure: After proper identification in the preoperative holding area the patient was brought to the operating room where positioned supine on the operating room table. Preoperatively SCDs were placed and antibiotics were administered. General anesthesia was then induced. Patient's abdomen was prepped and draped in usual sterile fashion. A formal timeout was conducted to confirm both patient and the procedure. Procedure was begun with a supraumbilical incision which was extended deeply down to the level of the fascia. The fascia was elevated and incised, as well as the peritoneum. A finger sweep was performed to ensure there were no underlying adhesions and a 12 mm balloon trocar was inserted. Pneumoperitoneum was established at 15 mmHg. 3 additional trocars were placed in the midclavicular line (bilaterally) as well as left upper quadrant. A fourth 8 mm port was nested within the Phillips port at the supraumbilical position. The robot was docked in the usual fashion after targeting. The gallbladder was visualized with mild inflammation. The gallbladder fundus was then grasped and elevated cephalad. Then, using careful dissection the peritoneum was opened and the structures of the hepatocystic triangle were delineated. Unfortunately at this gallbladder manipulation, a rent was made in the gallbladder infundibulum resulting in local bile spillage which was promptly suctioned free of the peritoneum with the robotic suction rotary rig engine operator. Once the critical view of safety was obtained, the cystic duct was cannulated with a cholangiocatheter via the inadvertent rent in the gallbladder infundibulum and this catheter was held in place by a robotic grasper. Then a cholangiogram was obtained between the robot arms showing unimpeded passage of the contrast through the cystic duct common bile duct, and into the duodenum. Satisfied with his result, the cholangiocatheter was withdrawn and the cystic duct was triply clipped and sharply divided. Several lymphatic branches were cauterized and then the same process was used for the cystic artery. The gallbladder was then removed from the gallbladder fossa with the use of the monopolar scissors. Selective electrocautery was used to obtain hemostasis in the gallbladder fossa. The gallbladder was placed in an Endo Catch bag and removed from the peritoneum. Pneumoperitoneum was evacuated and the fascia of the 12 mm port sites was closed with #1Vicryl in a [id number] fashion. A total of 20 mL of 0.5% bupivacaine was injected at the port sites for postoperative pain control. The skin of each port site was then closed in subcuticular fashion using 4-0 Monocryl. Steri-Strips and bandages were applied as dressings. Patient tolerated the procedure well without any apparent complications. On emergence from their anesthetic the patient was taken to PACU for ongoing recovery. Complications None Admit VTE Documentation VTE Mechan Device Prophylaxis: SCD's Procedures Digestive 40xxx-49xxx: [id number] Laparo cholecystectomy/graph
--- NOTE | 2021-11-27 13:34 | EX.PCM.DISCH ---
Discharge Instructions Diet Discharge Diet: No restrictions Activity Discharge Activity: May Not Drive (No driving while using narcotic pain medication) and May Shower (Postoperative day 1) May shower in (days): 1 Ice area for (Minutes): 20 Lifting Restrictions: No lifting greater than 15 pounds for 2 weeks after surgery Dressing / Incision Call your doctor if your incision/area has: Continuous Slow Oozing, Increased Pain/ Swelling, Increased Redness, Foul Smelling Discharge and Swelling at the incision site Call your doctor if you observe: Fever of 101 or Higher Remove Dressing in: 1 day (Please leave Steri-Strips intact until they fall off spontaneously or are taken off at your follow-up visit) Cleanse incision/area with: Soap & Water Follow Up Care Please Follow Up With: Boaz Gibson MD When: 7-10days postop Test Results: Test results from this visit will be discussed in further detail at your follow-up appointment, if applicable. Discharge Plan Admission Primary Reason for Your Visit: Symptomatic cholelithiasis Attending Provider: Boaz Gibsno Primary Care Provider: Gisselle Smith HAND PRINTED CIRCUIT BOARD ASSEMBLER Instructions Patient Instructions: After Gallbladder Surgery Discharge Orders/Prescriptions Prescriptions: New oxycodone 5 mg tablet 5 mg PO Q6H PRN (Reason: pain) 5 Days Qty: 14 0RF Continued pregabalin [Lyrica] 50 mg capsule 50 mg PO DAILY Label Comments: 50mg in AM 100 in PM metformin 1,000 mg tablet 1,000 mg PO BID cholecalciferol (vitamin D3) 50 mcg (2,000 unit) capsule 50 mcg PO DAILY Label Comments: 2,000 units daily, 4,000 units M,W,F vitamin B complex [B Complex-Vitamin B12] Tablet 1 tab PO DAILY atorvastatin 10 mg tablet 10 mg PO DAILY loratadine [Allergy Relief (loratadine)] 10 mg tablet 10 mg PO DAILY lisinopril 10 mg tablet 10 mg PO DAILY montelukast [Singulair] 10 mg tablet 10 mg PO DAILY diphenhydramine HCl [Benadryl Allergy] 25 mg tablet 25 mg PO QHS melatonin 5 mg capsule 5 mg PO QHS PRN (Reason: Sleep) fluticasone propionate [Flonase Allergy Relief] 50 mcg/actuation spray,suspension 1 spray intranasal DAILY Rx Instructions: administer into each nostril dietary supplement Capsule 1 cap PO DAILY pregabalin [Lyrica] 100 mg Capsule 100 mg PO QHS hydrochlorothiazide 12.5 mg Capsule 12.5 mg PO DAILY omeprazole 40 mg capsule,delayed release(DR/EC) 40 mg PO DAILY Qty: 30 2RF Referrals / Follow Up: PodlogGisselle salinas NP, HAND PRINTED CIRCUIT BOARD ASSEMBLER-C [Primary Care Provider] - Disposition Disposition (needs filled in before D/C Order can be placed): Home, Self Care
[2021-11-27 14:01] LABS: Bedside Glucose 165 mg/dL (74-106)
[2021-11-27] MEDS: oxyCODONE 5 MG Tablet PO (15:34)
[2021-11-27] MEDS: Acetaminophen 325 MG Tablet PO (15:34)
== END 2021-11-27 16:39 | disposition home or self-care (01) ==
LOC: SDC 08:52 → AC 08:55
PROVIDERS: Anesthesiology; PCP Nurse Practitioner Primary Care; Visit Provider Surgery
PROC: 0FT44ZZ Resection of Gallbladder, Percutaneous Endoscopic Approach (ICD-10-PCS; CPT 47562; principal; 2021-11-27 10:10)
DX: K80.10 Calculus of gallbladder with chronic cholecystitis without obstruction (principal); E11.40 Type 2 diabetes mellitus with diabetic neuropathy, unspecified; K21.9 Gastro-esophageal reflux disease without esophagitis; K59.00 Constipation, unspecified; K92.1 Melena; I10 Essential (primary) hypertension; E78.5 Hyperlipidemia, unspecified; G47.30 Sleep apnea, unspecified; E66.9 Obesity, unspecified; F17.210 Nicotine dependence, cigarettes, uncomplicated; F17.290 Nicotine dependence, other tobacco product, uncomplicated; Z68.39 Body mass index [BMI] 39.0-39.9, adult; Z79.84 Long term (current) use of oral hypoglycemic drugs; Z79.899 Other long term (current) drug therapy; Z80.0 Family history of malignant neoplasm of digestive organs
CPT/HCPCS: 47563; S2900; 00790; 74300; 76000; 80048; 81025; 82962; 83036; 85027; 88304; 93005; J7120; A4216; J2405

== ENCOUNTER 2024-09-21 08:43 | Emergency (ER) | payer OTHER, SELFPAY ==
[2024-09-21 08:44] VITALS: BP 192/78; PULSE 112; RESP 22; TEMP 36.2; O2SAT 97; BMI 39.3
--- NOTE | 2024-09-21 08:49 | ED.VIS.GI ---
HPI HPI - GI History of Present Illness Chief Complaint: Abd Pain Informant: patient Abdominal Pain/Flank Pain Onset: Days (2) Context: Gradual Onset Timing: Continuous Quality: Sharp Location: RUQ and - (Low back) Worsened by: Nothing Relieved by: - (Heating pad) Nausea/Vomiting/Emesis GI Symptom: Negative for Nausea or Vomiting Diarrhea/Melena/Hematochezia GI Symptom: Negative for Diarrhea, Melena or Hematochezia Associated Symptoms Associated Symptoms: Negative for Dysuria, Frequency or Hematuria Narrative Narrative: Patient presents with constipation, back pain, and abdominal pain that has been getting worse over the past 2 days. Patient states her pain started in her back. Patient states she has been able to have some small bowel movements but states she still feels like there is stool in her rectum. Patient states she has been drinking prune juice and taking MiraLAX with no improvement. Patient states that occasionally her pain radiates into the substernal area and she gets short of breath with this. Patient states this only last for few seconds. Patient describes her pain as sharp. Patient states she has pain over the right upper abdomen and low back. Patient states nothing makes it worse. Patient states she has been using a heating pad which has been helping. Patient states she recently finished her last menstrual period and has an IUD in place. Patient denies any urinary complaints. [facility] Medical History History of hiatal hernia Wears glasses Wears partial dentures Alcohol use Diabetes Restless legs Dietary restriction Gastric reflux Leg cramps History of edema Chest pain Gall stones Smoker CPAP (continuous positive airway pressure) dependence Hyperlipidemia Varicose veins of both lower extremities Hypertension Diabetic neuropathy Home Medications ?Medication ?Instructions ?Recorded ?Last Taken ?Type atorvastatin 10 mg tablet 10 mg PO DAILY 09/30/21 Unknown History cholecalciferol (vitamin D3) 50 50 mcg PO DAILY 09/30/21 Unknown History mcg (2,000 unit) capsule diphenhydramine HCl 25 mg tablet 25 mg PO QHS 09/30/21 Unknown History (Benadryl Allergy) fluticasone propionate 50 1 spray intranasal DAILY 09/30/21 Unknown History mcg/actuation nasal spray,suspension (Flonase Allergy Relief) lisinopril 10 mg tablet 10 mg PO DAILY 09/30/21 11/27/21 History loratadine 10 mg tablet (Allergy 10 mg PO DAILY 09/30/21 Unknown History Relief (loratadine)) melatonin 5 mg capsule 5 mg PO QHS PRN Sleep 09/30/21 Unknown History metformin 1,000 mg tablet 1,000 mg PO BID 09/30/21 Unknown History montelukast 10 mg tablet 10 mg PO DAILY 09/30/21 Unknown History (Singulair) pregabalin 50 mg capsule (Lyrica) 50 mg PO DAILY 09/30/21 11/27/21 History vitamin B complex (B 1 tab PO DAILY 09/30/21 Unknown History Complex-Vitamin B12 tablet) dietary supplement 1 cap PO DAILY 10/23/21 Unknown History hydrochlorothiazide 12.5 mg capsule 12.5 mg PO DAILY 10/23/21 Unknown History pregabalin 100 mg capsule (Lyrica) 100 mg PO QHS 10/23/21 10/26/21 History omeprazole 40 mg capsule,delayed 40 mg PO DAILY #30 caps 04/26/22 Unknown Rx release oxybutynin chloride 5 mg 5 mg PO 08/11/22 Unknown History tablet,extended release 24 hr Allergy/AdvReac Type Severity Reaction Status Date / Time No Known Allergies Allergy Verified 09/21/24 08:44 Family History Father Colon cancer High cholesterol Mother Diabetes Thyroid disorder Surgical History S/P cholecystectomy Hx of colonoscopy History of appendectomy Social History household members: children Smoking Status: Current every day smoker tobacco type: cigarettes alcohol intake: never substance use type: does not use ROS ROS ED Constitutional Constitutional ED: Denies chills or fever(s) Eyes Eyes: Denies blurry vision or change in vision ENT ENT ED: Denies rhinorrhea or sore throat Cardiovascular Cardiovascular: Reports chest pain; Denies palpitations Respiratory/Chest Respiratory/Chest: Reports dyspnea; Denies cough Gastrointestinal Gastrointestinal: Denies nausea or vomiting Genitourinary Genitourinary ED: Denies dysuria or hematuria Musculoskeletal Musculoskeletal: Reports back pain and neck pain Integumentary Denies abscess or rash Neurologic Neurologic: Denies headache(s) or weakness Allergic/Immunologic Allergic/Immunologic ED: Denies mouth swelling or urticaria EXAM Physical Exam Const Vital Signs: 09/21/24 08:44 09/21/24 10:44 Temperature 97.1 F L Temperature Source Temporal Pulse Rate 112 H 87 Respiratory Rate 22 H 17 Blood Pressure 192/78 H 120/63 Blood Pressure Mean 116 82 Pulse Ox 97 100 Oxygen Delivery Method Room Air Room Air Positive well nourished and well developed General Appearance ED: well developed and NAD HEENT Reports moist mucous membranes normocephalic and atraumatic Neck supple and no JVD Resp normal respiratory effort and clear to auscultation bilaterally Cardio regular rate and regular rhythm GI non-distended Auscultation: normoactive bowel sounds Palpation: soft and tender LLQ, RLQ, RUQ and suprapubic; Negative for guarding or rebound tenderness present Neuro CN's II-XII intact bilaterally, moves all extremities, no sensory deficits noted and gait normal Sensorium / Orientation: alert Motor Exam: strength 5/5 throughout Psych mental status grossly normal MDM MDM MDM Narrative Medical decision making narrative: Differential diagnosis includes bowel obstruction, perforation, constipation, pancreatitis, diverticulitis, gastritis, electrolyte abnormality, urinary tract infection, and . CBC will be obtained to assess for leukocytosis and anemia. Comprehensive metabolic profile will be obtained to assess for hepatic function, renal function, and electrolyte abnormality. Lipase will be obtained to assess for pancreatitis. Urinalysis will be obtained to assess for urinary tract infection and hematuria. Serum hCG will be obtained to assess for . CT scan of the abdomen and pelvis will be obtained to assess for diverticulitis, constipation, bowel obstruction, and perforation. History & Record Review Additional record(s) reviewed:: Prior labs Lab Data Attestation: I reviewed the patient's lab results. Lab results narrative: CBC was reviewed and was within normal limits. Basic metabolic profile was reviewed. Alkaline phosphatase was slightly elevated at 190. The remainder is within normal limits. Lipase was reviewed and was slightly elevated at 97. Serum hCG was reviewed and was negative. Urinalysis was reviewed. There is no evidence of urinary tract infection or hematuria. Labs: Laboratory Results - last 24 hr 09/21/24 09/21/24 09:16 09:19 WBC 9.2 RBC 4.49 Hgb 12.5 Hct 38.7 MCV 86.2 MCH 27.8 MCHC 32.3 RDW Std Deviation 52.0 H RDW Coeff of [place] 16.6 H Plt Count 410 MPV 10.4 Immature Gran % (Auto) 0.300 Neut % (Auto) 59.0 Lymph % (Auto) 28.9 [place] % (Auto) 4.9 Eos % (Auto) 5.7 H Baso % (Auto) 1.2 H Absolute Neuts (auto) 5.4 Absolute Lymphs (auto) 2.64 Nucleated RBC % 0 Sodium 138 Potassium 4.4 Chloride 103 Carbon Dioxide 24.6 Anion Gap 11 BUN 9 Creatinine 0.74 Estim Creat Clear Calc 100.27 Est GFR (MDRD) Non-Af 99 BUN/Creatinine Ratio 12.1 Glucose 207 H Calcium 9.8 Total Bilirubin 0.38 AST 29 ALT 34 Alkaline Phosphatase 190 H Total Protein 7.8 Albumin 4.4 Globulin 3.4 Albumin/Globulin Ratio 1.3 Lipase 97 H Serum , Qual NEGATIVE Urine Color Yellow Urine Clarity Clear Urine pH 7.0 Ur Specific [place] 1.005 Urine Protein TNP Urine Glucose (UA) 1000 H Urine Ketones Negative Urine Occult Blood 10 H Urine Nitrite Negative Urine Bilirubin Negative Urine Urobilinogen Normal Ur Leukocyte Esterase Negative Urine RBC 0 SEEN Urine WBC 0 SEEN Ur Squamous Epith Cells 0-5 SEEN Urine Bacteria 0 SEEN Urine Mucus 0 SEEN U Random Total Protein < 6.0 Radiography Diagnostic Testing: Clinical Impression(s) from Imaging Studies Abdomen/Pelvis CT 09/21/24 10:33 IMPRESSION: Fatty infiltration of the liver. Status post cholecystectomy. IUD is seen within the endometrium. Reading Location: [facility] CT scan of the abdomen and pelvis was obtained. There is some fatty infiltration of the liver. There is no evidence of bowel obstruction or perforation. There is no free air or free fluid. This was interpreted by the radiologist and was also independently reviewed by myself. Treatment and Re-Evaluation :: Smoking cessation was discussed. Patient was given IV fluids. Patient was advised of her findings. Patient was instructed to continue using her MiraLAX. Patient was instructed to eat a high-fiber diet or get fiber supplements. Patient was instructed to follow-up with her primary care physician in 5 to 7 days. Patient was instructed to return if worse in any way. Patient understood and was agreeable with the plan. All questions were answered. Discharge Plan Triage Chief Complaint: Abd Pain ED Provider: Henry Lyons Dx/Rx/DC Orders Clinical Impression: Abdominal pain, Type 2 diabetes, controlled, with neuropathy Instructions: ED Abdominal Pain Unkn Cause Fem, ED Constipation (Adult) Prescriptions: No Action pregabalin [Lyrica] 50 mg capsule 50 mg PO DAILY Patient Comments: 50mg in AM 100 in PM metformin 1,000 mg tablet 1,000 mg PO BID cholecalciferol (vitamin D3) 50 mcg (2,000 unit) capsule 50 mcg PO DAILY Patient Comments: 2,000 units daily, 4,000 units M,W,F vitamin B complex [B Complex-Vitamin B12] Tablet 1 tab PO DAILY atorvastatin 10 mg tablet 10 mg PO DAILY loratadine [Allergy Relief (loratadine)] 10 mg tablet 10 mg PO DAILY lisinopril 10 mg tablet 10 mg PO DAILY montelukast [Singulair] 10 mg tablet 10 mg PO DAILY diphenhydramine HCl [Benadryl Allergy] 25 mg tablet 25 mg PO QHS melatonin 5 mg capsule 5 mg PO QHS PRN (Reason: Sleep) fluticasone propionate [Flonase Allergy Relief] 50 mcg/actuation spray,suspension 1 spray intranasal DAILY Rx Instructions: administer into each nostril oxybutynin chloride 5 mg tablet extended release 24hr 5 mg PO Patient Comments: take 1 tablet by mouth once daily dietary supplement Capsule 1 cap PO DAILY pregabalin [Lyrica] 100 mg Capsule 100 mg PO QHS hydrochlorothiazide 12.5 mg Capsule 12.5 mg PO DAILY omeprazole 40 mg capsule,delayed release(DR/EC) 40 mg PO DAILY Qty: 30 2RF Primary Care Provider: Gisselle Smith NP Referrals: Gisselle Smith NP, [employer]ICE [employer]PERVISOR-[employer] [Primary Care Provider] - 5-7 Days Print Language: Armenian Disposition Disposition: Home, Self Care
--- NOTE | 2024-09-21 09:02 | ED.RN ---
PT STATES I THINK IM IMPACTED. SHE HAS BEEN TAKING MIRALAX WITH C/O URQ ABD PAIN AND LOWER BACK PAIN. PT STATES SHE HAD SOME STERNAL PAIN LAST NIGHT THAT RESOLVED QUICKLY. DENIES ANY N/V OR SOB.
[2024-09-21] MEDS: 0.9% Normal Saline (1000mL) 1,000 ML 999 ML IV (09:25)
[2024-09-21 09:32] LABS: Bacteria 0 SEEN /hpf (None Seen); Mucous, Urine 0 SEEN /hpf (<or=2+); Red Blood Cells-Urine 0 SEEN /hpf (0-5); White Blood Cells 0 SEEN /hpf (0-5)
[2024-09-21 09:36] LABS: Absolute Lymphocyte Count 2.64 X10^3/uL (0.83-4.51); Absolute Neutrophil Count 5.4 X10^3/uL (2.0-7.7); Basophil# 0.11 X10^3/uL; Basophil% 1.2 % (0-1); Eosinophil# 0.52 X10^3/uL; Eosinophils% 5.7 % (0-5); Hematocrit 38.7 % (37-47); Hemoglobin 12.5 g/dL (12.0-15.0); Lymphocyte # 2.64 X10^3/ul (0.83-4.51); Lymphocyte % 28.9 % (19-41); Mean Corp Hgb Conc 32.3 g/dL (32-36); Mean Corpuscular Hgb 27.8 pg (27.0-32.0); Mean Corpuscular Volume 86.2 fL (81-99); Mean Platelet Vol. 10.4 fl (6.2-12.0); Monocyte# 0.45 X10^3/uL; Monocyte% 4.9 % (0-10); NRBC Flagged by Analyzer 0 % (0-5); Platelet Count 410 K/mm3 (150-450); RBC Distribution Width CV 16.6 % (11.6-14.6); Red Blood Count 4.49 M/mm3 (4.2-5.4); White Blood Count 9.2 K/mm3 (4.4-11.0)
[2024-09-21 09:45] LABS: Color, Urine Yellow (Yellow); Glucose, Dipstick 1000 mg/dl (Normal); Ketone-Dipstick Negative (Negative); Leukocyte Esterase-Dipstick Negative /ul (Negative); Nitrite-Dipstick Negative (Negative); Occult Blood-Urine 10 /ul (Negative); Specific Gravity, Urine 1.005 (1.002-1.030); Urine Bilirubin Dipstick Negative (Negative); Urine Clarity Clear (Clear); Urine Urobilinogen Normal (Normal)
[2024-09-21 09:53] LABS: Internal QC Validated? YES +Cl - CLEAR BKGD; Pregnancy, Serum, hCG Quali. NEGATIVE Negative
[2024-09-21 09:53] LABS: Squamous Epithelial Cells - UA 0-5 SEEN /hpf (5-10)
[2024-09-21 10:06] LABS: Protein, Urine (Random) < 6.0 mg/dL (0.0-12.0)
[2024-09-21 10:09] LABS: ALB/GLOB Ratio 1.3 RATIO (0.9-2.4); AST(SGOT) 29 U/L (<=31); Alanine Aminotransfer ALT/SGPT 34 U/L (<=34); Albumin, Serum 4.4 g/dL (3.5-5.0); Alkaline Phosphatase 190 U/L (35-104); Anion Gap 11 (5-15); BUN 9 mg/dL (4-19); BUN/Creat Ratio 12.1 RATIO (10-20); Calcium,Total 9.8 mg/dL (7.6-11.0); Carbon Dioxide 24.6 mmol/L (21.0-32.0); Chloride 103 mmol/L (98-108); Creatinine, Serum 0.74 mg/dL (0.70-1.20); EST Glomerular Filtration Rate 99 (>60); Estimated Creatinine Clearance 100.27 ml/min (50-250); Globulin 3.4 g/dL (2.2-4.2); Glucose 207 mg/dL (70-99); Lipase 97 U/L (13-75); Potassium 4.4 mmol/L (3.3-5.1); Protein, Total 7.8 g/dL (5.9-8.4); Sodium Level 138 mmol/L (133-145); Total Bilirubin 0.38 mg/dL (0.00-1.30)
--- NOTE | 2024-09-21 10:33 | CT_ITS ---
PROCEDURE: ABDOMEN/PELVIS W IV CONT ONLY 09/21/2024 REASON FOR EXAM: ABDOMINAL PAIN 3 day history of constipation. TECHNIQUE: Abdomen and pelvis CT with intravenous contrast. Coronal and Sagittal reconstruction series were provided. PATIENT PREPARATION: Per protocol ORAL CONTRAST TYPE: None. CONTRAST: Isovue-300 VOLUME: 98 mL One or more dose reduction techniques were used (e.g., Automated exposure control, adjustment of the mA and/or kV according to patient size, use of iterative reconstruction technique. RADIATION DOSE SUMMARY: CTDlvol: 16.5 mGy DLP: 1260.41 mGycm COMPARISON: None FINDINGS: Lung bases: Unremarkable Liver: Diffuse fatty infiltration. Gallbladder: Surgically absent. Spleen: Normal size. Pancreas: Normal size without evidence of mass surrounding inflammation or ductal dilation. Adrenals: Unremarkable Kidneys: Normal renal sizes. No hydronephrosis. Bladder: Unremarkable Reproductive Organs: IUD is seen within the uterus. Bowel: No bowel obstruction. Appendix: Unremarkable Lymph nodes: No suspicious lymph node enlargement. Vasculature: The abdominal aorta and IVC are normal. Peritoneum / Retroperitoneum: Unremarkable Bones: Degenerative changes of the spine. Loss of the normal cervical lordosis. CT/Abdomen/Pelvis W IV Cont ONLY IMPRESSION: Fatty infiltration of the liver. Status post cholecystectomy. IUD is seen within the endometrium. Reading Location: [id number]
[2024-09-21 10:44] VITALS: BP 120/63; PULSE 87; RESP 17; O2SAT 100
[2024-09-21 11:56] VITALS: BP 126/77; PULSE 92; RESP 18; TEMP 36.6; O2SAT 98
== END 2024-09-21 11:58 | disposition home or self-care (01) ==
PROVIDERS: Emergency Provider Emergency Medicine; PCP Nurse Practitioner Primary Care; Visit Provider Emergency Medicine
DX: R10.9 Unspecified abdominal pain (principal); E11.40 Type 2 diabetes mellitus with diabetic neuropathy, unspecified; R06.02 Shortness of breath; E78.5 Hyperlipidemia, unspecified; I10 Essential (primary) hypertension; F17.210 Nicotine dependence, cigarettes, uncomplicated; R07.9 Chest pain, unspecified
CPT/HCPCS: 74177; 80053; 81001; 83690; 84156; 84703; 85025; 96360; 99283; Q9967; A4216